=== PATIENT | female | born 1945 | race Caucasian/White ===

== ENCOUNTER 2016-08-24 10:05 | Day surgery (SDC) | payer MEDICARE ==
[~2016-08-24] VITALS: Ht 152.4 cm; Wt 50.0 kg
[~2016-08-24 10:05] MED LIST: 0.9% Sodium Chloride 1,000 ML IV PRN; CALC-78 PO; CHOL10008 PO; DILT90TA PO; FUR20 PO; GLUC-180 PO; LATA2.5D6 OP; METO-272 PO; OMEP40CA36 PO; PRAZ1CAP2 PO; Sodium Chloride LOK Flush 10 mL Syringe IV PRN; fentaNYL-PF 50 mCg/mL 2 mL Inj IVPUSH PRN
[2016-08-24 10:34] VITALS: BP 162/61; PULSE 71; RESP 16; O2SAT 100
[2016-08-24] MEDS ORDERED: ROSU10TA24 PO (10:34)
[2016-08-24 12:39] VITALS: BP 124/67; PULSE 72; RESP 14; O2SAT 97
[2016-08-24 12:49] VITALS: BP 104/56; PULSE 57; RESP 14; O2SAT 98
[2016-08-24 12:56] VITALS: BP 120/62; PULSE 62; RESP 14; O2SAT 100
--- NOTE | 2016-08-24 13:02 | ENDO ---
[address] [address] ENDOSCOPY PROCEDURE PATIENT: ADINA MALCOLM : 1945 MR#: [id number] ADMIT: 08/24/2016 JOB ID: [id number] DATE: 08/24/2016 PRIMARY PROVIDER: Marlena Stapleton DO PROCEDURE: Colonoscopy. INDICATIONS: A 70-year-old female with a personal history of colon polyps returning for surveillance. EQUIPMENT: PCF H 180 AL. SEDATION: Versed 4 mg, 100 mcg fentanyl. COMPLICATIONS: None identified. BOWEL PREPARATION: Excellent. PROCEDURE INFORMATION: After the risks and benefits were explained, written and verbal informed consent was obtained. The patient was brought into the endoscopy suite and placed into the left lateral decubitus position. Sedation was achieved as above. A digital rectal examination accomplished. No significant pathology appreciated. The scope was introduced into the rectum and advanced to the cecum as identified by the appendiceal orifice and ileocecal valve. The scope was slowly withdrawn to carefully examine the mucosa for any defects or lesions. Multiple direct views were made through the dentate line for exclusion of pathology. The colon was decompressed and the scope removed from the patient, who tolerated the procedure well. FINDINGS: Challenging navigation. Twisty bowel. Otherwise, no significant pathology appreciated throughout. ENDOSCOPIC DIAGNOSES: Visually unremarkable colonoscopy to cecum. RECOMMENDATIONS: Considering past history of colon polyps, repeat colonoscopy five years.
== END 2016-08-24 23:59 | disposition home or self-care (01) ==
LOC: END 10:05
PROVIDERS: ATTEND Internal Medicine Gastroenterology
DX: Z12.11 Encounter for screening for malignant neoplasm of colon (principal); Z86.010 Personal history of colon polyps; E78.5 Hyperlipidemia, unspecified; I10 Essential (primary) hypertension
CPT/HCPCS: 99153; G0105; G0500; J2250; J3010; J7030